=== PATIENT | male | born 1990 | race Caucasian/White ===

== ENCOUNTER 2023-05-23 20:00 | Outpatient (CLI) | payer OTHER, SELFPAY | END 2023-05-23 20:01 | disposition home or self-care (01) | LOC: SLEEP 05-24 02:17 | PROVIDERS: Family Provider Family Medicine; PCP Family Medicine; Visit Provider Family Medicine | DX: G47.33 Obstructive sleep apnea (adult) (pediatric) (principal); R06.83 Snoring | CPT/HCPCS: 95810 ==

== ENCOUNTER 2023-09-19 20:00 | Outpatient (CLI) | payer OTHER, SELFPAY | END 2023-09-19 20:01 | disposition home or self-care (01) | LOC: SLEEP 09-20 06:15 | PROVIDERS: Family Provider Family Medicine; PCP Family Medicine; Visit Provider Family Medicine | DX: G47.33 Obstructive sleep apnea (adult) (pediatric) (principal) | CPT/HCPCS: 95811 ==